=== PATIENT | female | born 1975 ===

== ENCOUNTER → 2022-03-13 11:37 | Outpatient (CLI) | payer OTHER, SELFPAY ==
--- NOTE | 2022-03-13 | DI.MRI.S_ITS ---
PROCEDURE: MR KNEE LT WO CON INDICATIONS: LEFT KNEE PAIN TECHNIQUE: Noncontrast sagittal PD fast spin echo and T2 fast spin echo with fat saturation, sagittal 3-D FLASH with fat saturation; coronal T1 spin echo and PD fast spin echo with fat saturation, and axial PD fast spin echo with fat saturation through the knee. COMPARISON: None. FINDINGS: Image quality: Excellent. Menisci: Medial extrusion of the medial meniscus. Radial tearing of the posterior horn medial meniscus at the meniscal root ligament insertion site. Amorphous high signal intensity within the middle and peripheral thirds of the medial meniscal body and posterior horn demonstrating inferior articular surface extension. Superimposed linear oblique high signal intensity involving the inner, middle, and peripheral thirds of the posterior horn medial meniscus, demonstrating inferior articular surface extension, indicating oblique tearing. Lateral meniscus is intact. Cruciate ligaments: The anterior and posterior cruciate ligaments appear intact. Medial structures: The medial collateral ligament appears intact. Visualized portions of the pes anserinus tendons appear normal. Small amount of medial bursal fluid. Lateral structures: The lateral collateral ligament, long and short heads of the biceps femoris tendon appear intact. The popliteus tendon appears normal. Iliotibial band appears normal. Anterior structures: The quadriceps and patellar tendons appear intact. Patellar alignment is normal. No femoral trochlear dysplasia or ventral trochlear prominence. No edema in the infrapatellar fat pad. Bones and cartilage: No bone marrow contusions or fractures. Mild articular cartilage loss diffusely overlies the weight-bearing aspects of the medial femoral condyle and medial tibial plateau. Mild articular cartilage loss overlies the medial and lateral patellar facets. Joint space: There is a small knee joint effusion. No Joaquin's cyst. Normal appearing synovial plicae are incidentally noted. IMPRESSION: 1. Tricompartmental osteoarthritis with associated articular cartilage loss. 2. Multifocal tearing of the medial meniscus. 3. Mild medial bursitis. 4. Small knee joint effusion. Dictated by: Diana Espitia M.D. on 03/16/2022 at 10:20 Approved by: Diana Espitia M.D. on 03/16/2022 at 10:22
== END ==
PROVIDERS: PCP Physician Assistant; Referring Provider Physician Assistant; Visit Provider Physician Assistant
DX: M17.12 Unilateral primary osteoarthritis, left knee (principal); M25.462 Effusion, left knee; S83.242A Other tear of medial meniscus, current injury, left knee, initial encounter; M71.562 Other bursitis, not elsewhere classified, left knee
CPT/HCPCS: 73721